=== PATIENT | female | born 1980 | race Caucasian/White ===

== ENCOUNTER 2017-12-02 23:02 | Emergency (ER) | payer SELFPAY ==
[2017-12-03] MEDS ORDERED: ONDANSETRON 4 MG (ODT) TAB ONE (00:46)
[2017-12-03] MEDS ORDERED: MORPHINE 4 MG/ML SYR ONE (00:46)
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
== END 2017-12-03 01:29 | disposition home or self-care (01) ==
LOC: ER 23:02
DX: M79.671 Pain in right foot (principal); T63.011D Toxic effect of rattlesnake venom, accidental (unintentional), subsequent encounter; M79.89 Other specified soft tissue disorders; F17.210 Nicotine dependence, cigarettes, uncomplicated
CPT/HCPCS: 96372; 99283

== ENCOUNTER 2020-01-31 14:14 | Emergency (ER) | payer SELFPAY ==
--- NOTE | 2020-01-31 14:53 | ER ---
Nurse's Notes [facility] Name: Susan Pitts Age: 39 yrs Sex: Female : 1980 Arrival Date: 01/31/2020 Time: 14:16 Bed 4 Private MD: Diagnosis: Torticollis;Low back pain-Chronic Presentation: 01/30 14:31 Chief complaint: Patient states: neck pain x 2 weeks. Pt reports she has ongoing back/ ss neck problems x 12 years. Coronavirus screen: Client denies travel out of the [place] in the last 14 days. Ebola Screen: Patient denies exposure to infectious person. Patient denies travel to an Ebola-affected area in the 21 days before illness onset. Initial Sepsis Screen: Does the patient meet any 2 criteria? No. Patient's initial sepsis screen is negative. Does the patient have a suspected source of infection? No. Patient's initial sepsis screen is negative. Risk Assessment: Do you want to hurt yourself or someone else? Patient reports no desire to harm self or others. Onset of symptoms was January 2020. 14:31 Method Of Arrival: Ambulatory ss 14:31 Acuity: KENROY 4 ss Historical: - Allergies: 14:55 No Known Allergies; em - PSHx: 14:55 Tubal ligation; em - Immunization history:: Adult Immunizations up to date. - Social history:: Smoking status: Patient denies any tobacco usage or history of. - Family history:: not pertinent. - Hospitalizations: : No recent hospitalization is reported. Screenin:50 Abuse screen: Denies threats or abuse. Nutritional screening: No deficits noted. em Tuberculosis screening: No symptoms or risk factors identified. Fall Risk None identified. Assessment: 14:50 General: Appears in no apparent distress. uncomfortable, Behavior is calm, cooperative. em Pain: Complains of pain in left leg and lumbar spine and cervical spine Pain currently is 9 out of 10 on a pain scale. Neuro: Level of Consciousness is awake, alert, obeys commands, Oriented to person, place, time, situation, Appropriate for age. Cardiovascular: Capillary refill < 3 seconds Patient's skin is warm and dry. Respiratory: Airway is patent Respiratory effort is even, unlabored, Respiratory pattern is regular, symmetrical. GI: Abdomen is flat. Derm: Skin is intact, is healthy with good turgor, Skin is pink, warm \T\ dry. Musculoskeletal: Capillary refill < 3 seconds, Range of motion: intact in all extremities. Vital Signs: 14:31 BP 115 / 81; Pulse 95; Resp 16; Temp 97.4(TE); Pulse Ox 100% on R/A; ss ED Course: 14:16 Patient arrived in ED. mr 14:22 Jh Osborn MD is Attending Physician. rn 14:28 David Michaud RN is Primary Nurse. em 14:33 Triage completed. ss 14:50 Patient has correct armband on for positive identification. Call light in reach. Pulse em ox on. NIBP on. 15:13 No provider procedures requiring assistance completed. Patient did not have IV access em during this emergency room visit. Administered Medications: 14:48 Drug: Decadron 10 mg Route: IM; Site: left deltoid; em 15:10 Follow up: Response: No adverse reaction em Outcome: 14:52 Discharge ordered by . rn 15:13 Discharged to home ambulatory. em 15:13 Condition: good 15:13 Discharge instructions given to patient, Instructed on discharge instructions, follow up and referral plans. Demonstrated understanding of instructions, follow-up care, medications, Prescriptions given X 1. 15:13 Patient left the ED. em Signatures: Libertad Johns mr David Michaud, RN JOSHUA Jh Osborn MD MD rn [facility] RN
--- NOTE | 2020-01-31 14:53 | EDPHYS ---
Physician Documentation [facility] Name: Susan Pitts Age: 39 yrs Sex: Female : 1980 Arrival Date: 01/31/2020 Time: 14:16 Bed 4 Private MD: ED Physician Jh Osborn HPI: 01/30 14:37 This 39 yrs old Female presents to ER via Ambulatory with complaints of Back rn Pain, Neck Problem. 14:37 The patient presents with pain that is chronic. The symptoms are located in the low rn back, cervical spine and lumbar spine. Onset: The symptoms/episode began/occurred "years ago". The pain radiates to the left leg. Associated signs and symptoms: Pertinent negatives: abdominal pain, chest pain, fever, hematuria, incontinence, nausea, numbness, tingling, urinary retention, vomiting, weakness. Modifying factors: The patient symptoms are alleviated by nothing, the patient symptoms are aggravated by any movement, lifting, movement. Severity of symptoms: At their worst the symptoms were moderate, in the emergency department the symptoms are unchanged. The patient has experienced similar episodes in the past, chronically. Denies any new injury, reports back and neck pain "for years", no fever/focal neuro complaint. Reports hurts to turn head to left and right, but worse to left. Taking medrol dose pack. Here because wants MRI of spine as she does not have money to pay for one in clinic. . Historical: - Allergies: 14:55 No Known Allergies; em - PSHx: 14:55 Tubal ligation; em - Immunization history:: Adult Immunizations up to date. - Social history:: Smoking status: Patient denies any tobacco usage or history of. - Family history:: not pertinent. - Hospitalizations: : No recent hospitalization is reported. ROS: 14:37 Constitutional: Negative for fever, chills, and weight loss, ENT: Negative for injury, rn pain, and discharge, Neck: Negative for injury, and swelling, Cardiovascular: Negative for chest pain, palpitations, and edema, Respiratory: Negative for shortness of breath, cough, wheezing, and pleuritic chest pain, Abdomen/GI: Negative for abdominal pain, nausea, vomiting, diarrhea, and constipation, Back: + chronic back pain : Negative for injury, bleeding, discharge, and swelling, MS/Extremity: Negative for injury and deformity, Skin: Negative for injury, rash, and discoloration, Neuro: Negative for headache, weakness, numbness, tingling, and seizure. Exam: 14:37 Constitutional: Thin female, ambulatory to room without assistance Head/Face: rn Normocephalic, atraumatic. Neck: Trachea midline, no masses palpated, and no cervical lymphadenopathy. + tenderness over left lateral/posterior neck muscles without mass or crepitus. No warmth. Skin: Warm, dry with normal turgor. Normal color with no rashes, no lesions, and no evidence of cellulitis. MS/ Extremity: Pulses equal, no cyanosis. Neurovascular intact. Full, normal range of motion. Equal circumference. Neuro: Awake and alert, GCS 15, oriented to person, place, time, and situation. Cranial nerves II-XII grossly intact. Motor strength 5/5 in all extremities. Sensory grossly intact. Cerebellar exam normal. Normal gait. Vital Signs: 14:31 BP 115 / 81; Pulse 95; Resp 16; Temp 97.4(TE); Pulse Ox 100% on R/A; ss MDM: 14:22 Patient medically screened. rn 14:37 Differential diagnosis: arthritis, chronic back pain, torticollis, muscle spasm. Data rn reviewed: vital signs, nurses notes, and as a result, I will discharge patient. Counseling: I had a detailed discussion with the patient and/or guardian regarding: the historical points, exam findings, and any diagnostic results supporting the discharge/admit diagnosis, the need for outpatient follow up, to return to the emergency department if symptoms worsen or persist or if there are any questions or concerns that arise at home. Special discussion: I discussed with the patient/guardian in detail that at this point there is no indication for admission to the hospital. It is understood, however, that if the symptoms persist or worsen the patient needs to return immediately for re-evaluation. Further emergent ED testing is not indicated at this point in time. I discussed with the patient/guardian in detail the need to arrange with the PCP or specialist further outpatient testing, MRI. ED course: No acute trauma to indicate emergent need for imaging, most consistent with chronic back pain and torticollis/muscle spasm. Will dc home with muscle relaxer and told needs outpt MRI and spine f/u. Already on medrol dose pack.. Administered Medications: 14:48 Drug: Decadron 10 mg Route: IM; Site: left deltoid; em 15:10 Follow up: Response: No adverse reaction em Disposition: 01/31/20 14:52 Discharged to Home. Impression: Torticollis, Low back pain - Chronic. - Condition is Stable. - Discharge Instructions: Back Pain, Adult, Chronic Back Pain, Acute Torticollis, Adult. - Prescriptions for Cyclobenzaprine 10 mg Oral Tablet - take 1 tablet by ORAL route every 8 hours As needed; 15 tablet. - Medication Reconciliation Form, Thank You Letter, Antibiotic Education, Prescription Opioid Use form. - Follow up: Private Physician; When: As needed; Reason: Recheck today's complaints, Re-evaluation by your physician. - Problem is chronic. - Symptoms have improved. Signatures: David Michaud RN RN em Jh Osborn MD MD research attorney: (The following items were deleted from the chart) 15:13 14:52 01/31/2020 14:52 Discharged to Home. Impression: Torticollis; Low back pain - em Chronic. Condition is Stable. Forms are Medication Reconciliation Form, Thank You Letter, Antibiotic Education, Prescription Opioid Use. Follow up: Private Physician; When: As needed; Reason: Recheck today's complaints, Re-evaluation by your physician. Problem is chronic. Symptoms have improved. rn
[2020-01-31] MEDS ORDERED: dexAMETHasone 10 MG/ML VIAL ONE (14:57)
[2020-01-31 16:26] VITALS: BP 115/81; TEMP 97.4; O2SAT 100
== END 2020-01-31 15:13 | disposition home or self-care (01) ==
LOC: ER 14:14
DX: M43.6 Torticollis (principal)
CPT/HCPCS: 96372; 99283; J1100

== ENCOUNTER 2022-03-31 10:14 | Emergency (ER) | payer OTHER ==
--- NOTE | 2022-03-31 10:57 | ER ---
Nurse's Notes [facility] Name: Susan Pitts Age: 42 yrs Sex: Female : 1980 Arrival Date: 03/31/2022 Time: 10:20 Bed 12 Private MD: Diagnosis: Low back pain;Radiculopathy, lumbar region Presentation: 03/31 10:30 Chief complaint: Patient states: back pain that has been ongoing for 15 years. PT ss reports that she came here because her insurance told her this is the only place to get an MRI. Coronavirus screen: Client denies travel out of the [place] in the last 14 days. Ebola Screen: Patient denies exposure to infectious person. Patient denies travel to an Ebola-affected area in the 21 days before illness onset. Initial Sepsis Screen: Does the patient meet any 2 criteria? No. Patient's initial sepsis screen is negative. Does the patient have a suspected source of infection? No. Patient's initial sepsis screen is negative. Risk Assessment: Do you want to hurt yourself or someone else? Patient reports no desire to harm self or others. Onset of symptoms is unknown. 10:30 Method Of Arrival: Ambulatory ss 10:30 Acuity: KENROY 4 ss Historical: - Allergies: 10:31 No Known Allergies; ss - Home Meds: 10:31 None [Active]; ss - PMHx: 10:31 Chronic back pain; ss - PSHx: 10:31 None; ss - Immunization history:: Client reports receiving the 2nd dose of the Covid vaccine. - Social history:: Smoking status: Patient reports the use of cigarette tobacco products, smokes one pack cigarettes per day. Screenin:06 [facility] ED Fall Risk Assessment (Adult) History of falling in the last 3 months, ss including since admission No falls in past 3 months (0 pts). Abuse screen: Denies threats or abuse. Denies injuries from another. Nutritional screening: No deficits noted. Tuberculosis screening: Never had TB. Assessment: 11:06 General: Appears in no apparent distress. comfortable, Behavior is calm, cooperative. ss Pain: Complains of pain in back Pain currently is 7 out of 10 on a pain scale. Quality of pain is described as aching, tender, Pain began 15 years ago Is continuous. Vital Signs: 10:30 BP 116 / 67; Pulse 94; Resp 16; Temp 97.5(TE); Pulse Ox 100% on R/A; Weight 49.9 kg; ss Height 5 ft. 4 in. (162.56 cm); Pain 7/10; 10:30 Body Mass Index 18.88 (49.90 kg, 162.56 cm) ED Course: 10:20 Patient arrived in ED. rg4 10:21 Mackenzie Acuña FNP-C [facility]. snw 10:21 Selvin Lala MD is Attending Physician. snw 10:31 Triage completed. ss 10:31 Arm band placed on left wrist. ss 10:56 Leonard Nguyễn DO is Referral Physician. snw 10:59 Mary Mackay RN is Primary Nurse. ss 11:05 No provider procedures requiring assistance completed. Patient did not have IV access ss during this emergency room visit. 11:06 Patient has correct armband on for positive identification. ss Administered Medications: 11:03 Drug: Ketorolac 30 mg Route: IM; Site: right gluteus; ss 11:13 Follow up: Response: No adverse reaction ss 11:05 Drug: Valium (diazepam) 5 mg Route: PO; ss 11:13 Follow up: Response: Medication administered at discharge. ss 11:05 Drug: Neurontin (gabapentin) 300 mg Route: PO; ss 11:13 Follow up: Response: Medication administered at discharge. Medication: 11:06 VIS not applicable for this client. Outcome: 10:56 Discharge ordered by MD. snw 11:13 Discharged to home ambulatory, with family. ss 11:13 Condition: good 11:13 Discharge instructions given to patient, family, Instructed on discharge instructions, follow up and referral plans. medication usage, Demonstrated understanding of instructions, follow-up care, medications, Prescriptions given X 4. 11:13 Patient left the ED. Signatures: Mackenzie Acuña FNP-C HEAD STILL OPERATOR-Csnw Mary Mackay RN RN Nury Johns rg4 Corrections: (The following items were deleted from the chart) 10:33 10:30 Chief complaint: Patient states: back pain that has been ongoing for 15 years. ss ss
--- NOTE | 2022-03-31 10:57 | EDPHYS ---
Physician Documentation [facility] Name: Susan Pitts Age: 42 yrs Sex: Female : 1980 Arrival Date: 03/31/2022 Time: 10:20 Bed 12 Private MD: Selvin Ferro HPI: 03/31 11:14 This 42 yrs old Female presents to ER via Ambulatory with complaints of Back Pain. snw 11:14 The patient presents with pain that is chronic, with no known mechanism of injury. The snw symptoms are located in the low back. Onset: The symptoms/episode began/occurred 15 year(s) ago, and became persistent. Location: left buttock. Associated signs and symptoms: Pertinent negatives: constipation, incontinence, urinary retention, weakness. The patient has not recently seen a physician. Historical: - Allergies: 10:31 No Known Allergies; ss - Home Meds: 10:31 None [Active]; ss - PMHx: 10:31 Chronic back pain; ss - PSHx: 10:31 None; ss - Immunization history:: Client reports receiving the 2nd dose of the Covid vaccine. - Social history:: Smoking status: Patient reports the use of cigarette tobacco products, smokes one pack cigarettes per day. ROS: 11:13 Back: Positive for decreased range of motion, pain at rest, pain with movement, snw radiated pain, of the to left buttock. Exam: 11:12 Constitutional: This is a well developed, well nourished patient who is awake, snw anxious, and in no acute distress. Head/Face: Normocephalic, atraumatic. Eyes: Pupils equal round and reactive to light, extra-ocular motions intact. Lids and lashes normal. Conjunctiva and sclera are non-icteric and not injected. Cornea within normal limits. Periorbital areas with no swelling, redness, or edema. ENT: Nares patent. No nasal discharge, no septal abnormalities noted. Tympanic membranes are normal and external auditory canals are clear. Oropharynx with no redness, swelling, or masses, exudates, or evidence of obstruction, uvula midline. Mucous membranes moist. Neck: Trachea midline, no thyromegaly or masses palpated, and no cervical lymphadenopathy. Supple, full range of motion without nuchal rigidity, or vertebral point tenderness. No Meningismus. Chest/axilla: Normal chest wall appearance and motion. Nontender with no deformity. No lesions are appreciated. Cardiovascular: Regular rate and rhythm with a normal S1 and S2. No gallops, murmurs, or rubs. Normal PMI, no JVD. No pulse deficits. Respiratory: Lungs have equal breath sounds bilaterally, clear to auscultation and percussion. No rales, rhonchi or wheezes noted. No increased work of breathing, no retractions or nasal flaring. Abdomen/GI: Soft, non-tender, with normal bowel sounds. No distension or tympany. No guarding or rebound. No evidence of tenderness throughout. Skin: Warm, dry with normal turgor. Normal color with no rashes, no lesions, and no evidence of cellulitis. MS/ Extremity: Pulses equal, no cyanosis. Neurovascular intact. Full, normal range of motion. Neuro: Awake and alert, GCS 15, oriented to person, place, time, and situation. Cranial nerves II-XII grossly intact. Motor strength 5/5 in all extremities. Sensory grossly intact. Cerebellar exam normal. Normal gait. 11:12 Back: pain, that is moderate, of the low back area, CVA tenderness, is absent, vertebral tenderness, is not appreciated, muscle spasm, is not present. 11:12 Neuro: Exam negative for acute changes. 11:12 Psych: Behavior/mood is pleasant, cooperative, anxious. Vital Signs: 10:30 BP 116 / 67; Pulse 94; Resp 16; Temp 97.5(TE); Pulse Ox 100% on R/A; Weight 49.9 kg; ss Height 5 ft. 4 in. (162.56 cm); Pain 7/10; 10:30 Body Mass Index 18.88 (49.90 kg, 162.56 cm) ss MDM: 10:35 Patient medically screened. jenifer 11:09 Differential diagnosis: Fracture Osteoarthritis Osteoporosis ruptured disc, sprain. snw Data reviewed: vital signs, nurses notes. I considered the following discharge prescriptions or medication management in the emergency department Medications were administered in the Emergency Department. See MAR. Historians other than the Patient: Parent: Mom. Care significantly affected by the following Social Determinants of Health: Pt requests MRI, not only is it the weekend, it is non-emergent for unchanged chronic back pain for 15yr. Discussed with Patient and visitor process for obtaining MRI. Pt will get appt with Dr. Nguyễn as soon as possible.. Counseling: I had a detailed discussion with the patient and/or guardian regarding: the historical points, exam findings, and any diagnostic results supporting the discharge/admit diagnosis, the need for outpatient follow up, for definitive care, to return to the emergency department if symptoms worsen or persist or if there are any questions or concerns that arise at home. Special discussion: Based on the history and exam findings, there is no indication for further emergent testing or inpatient evaluation. I discussed with the patient/guardian the need to see the back specialist for further evaluation of the symptoms. I discussed with the patient/guardian the need to see the primary care provider for further evaluation of the symptoms. Administered Medications: 11:03 Drug: Ketorolac 30 mg Route: IM; Site: right gluteus; ss 11:13 Follow up: Response: No adverse reaction ss 11:05 Drug: Valium (diazepam) 5 mg Route: PO; ss 11:13 Follow up: Response: Medication administered at discharge. ss 11:05 Drug: Neurontin (gabapentin) 300 mg Route: PO; ss 11:13 Follow up: Response: Medication administered at discharge. ss Disposition Summary: 03/31/22 10:56 Discharge Ordered Location: Home snw Condition: Stable snw Diagnosis - Low back pain snw - Radiculopathy, lumbar region snw Followup: snw - With: Emergency Department - When: As needed - Reason: Worsening of condition Followup: snw - With: Leonard Nguyễn DO - When: As needed - Reason: Recheck today's complaints, Continuance of care, Re-evaluation by your physician Discharge Instructions: - Discharge Summary Sheet snw - Chronic Back Pain snw - Musculoskeletal Pain snw - Neuropathic Pain snw - Rehydration, Adult snw - Heat Therapy snw - Radicular Pain snw - What You Need to Know About Chronic Back Pain snw Forms: - Medication Reconciliation Form snw - Thank You Letter snw - Antibiotic Education snw - Prescription Opioid Use snw - Work release form eb Prescriptions: - Neurontin 300 mg Oral Capsule - take 1 capsule by ORAL route every 8 hours; 30 capsule; Refills: 0, Product snw Selection Permitted - Prednisone 20 mg Oral Tablet - take 2 tablets by ORAL route once daily for 5 days; 10 tablet; Refills: 0, snw Product Selection Permitted - orphenadrine citrate 100 mg Oral Tablet Sustained Release - take 1 tablet by ORAL route 2 times per day As needed; 20 tablet; Refills: 0, snw Product Selection Permitted - Pepcid 20 mg Oral Tablet - take 1 tablet by ORAL route once daily; 20 tablet; Refills: 0, Product snw Selection Permitted Signatures: Selvin Laal MD MD cha Waters, Shelly, FNP-Alejandro BERNABE-Mary Rodrigues, JOSHUA RN ss
[2022-03-31] MEDS ORDERED: DIAZEPAM 5 MG TABLET ONE (11:04)
[2022-03-31] MEDS ORDERED: KETOROLAC 30 MG/ML INJ ONE (11:04)
[2022-03-31] MEDS ORDERED: GABAPENTIN 300 MG CAP ONE (11:04)
[2022-03-31 11:19] VITALS: BP 116/67; TEMP 97.5; O2SAT 100
== END 2022-03-31 11:13 | disposition home or self-care (01) ==
LOC: ER 10:14
DX: M54.16 Radiculopathy, lumbar region (principal); F17.210 Nicotine dependence, cigarettes, uncomplicated
CPT/HCPCS: 96372; 99283

== ENCOUNTER 2022-04-23 12:44 | Emergency (ER) | payer OTHER ==
--- OUTSIDE RECORDS SUMMARY | 2022-04-23 12:46 | XMS REPORT | Continuity of Care Document ---
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 SDOH Jacob Gannon ld - Alcohol Binge External History of tobacco Cigarette Smoker Jacob Good - use External Alcohol Comment 2022-04-17 2022-04-17 rarely Jacob castellano - 00:00:00 00:00:00 External Education 2022-04-17 2022-04-17 16 Jacob Good - 00:00:00 00:00:00 External Cigarettes smoked 2022-04-17 2022-04-17 Jacob Good - current (pack per 00:00:00 00:00:00 Externa l day) - Reported Cigarette 2022-04-17 2022-04-17 Jacob Good - pack-years 00:00:00 00:00:00 External Tobacco use and 2022-04-17 2022-04-17 Smokeless tobacco Ke sabina Galvanybold - exposure 00:00:00 00:00:00 non-user External Alcohol intake 2022-04-17 2022-04-17 Ex-drinker Jacob segal - 00:00:00 00:00:00 (finding) External Sex Ass[birth year] At [birth year] Jacob castellano - 00:00:00 00:00:00 External Smoking Status Start Date Stop Date Source Smokes tobacco daily 2022-04-17 00:00:00 Jacob Good - External Medications Ordered Filled Start Stop Current Ordering Indication Dosage Frequency Signature Comments Components Source Medication Medication Date Date Medication? 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 a AERS hours as l needed for wheezing Pseudoeph-B Yes [id number] 10mL Take 10 mL Jacob romphen-DM 2-20 by mouth 4 Sey bold 30-2-10 00:00: times - MG/5ML oral 00 daily Externa Syrup l Lidocaine Yes [id number] Use 15 ml Jacob HCl 2-20 to swish, Seybold (Lidocaine 00:00: gargle and - Viscous 00 spit every Dancing Instructor a HCl) 2 % 6 hours as l mouth/throa needed for t Solution throat pain FLUTICASONE 2022- Yes [id number] 50ug Use 1 Jacob PROPIONATE, 2-20 03-23 spray (50 Se ybold NASAL, 00:00: 04:59 mcg total) - (Flonase) 00 :00 in each Externa 50 MCG/ACT nostril l nasal daily Suspension Gabapentin Yes [id number] 300mg QD Take 1 Jacob 300 MG oral 2-15 capsule Seybo ld Capsule 00:00: (300 mg - 00 total) by Externa mouth l nightly as needed (pain) Gabapentin Yes [id number] 300mg QD Take 1 Jacob 300 MG oral 2-15 capsule Seybo ld Capsule 00:00: (300 mg - 00 total) by Externa mouth l nightly as needed (pain) Gabapentin 2022- No 300mg Take 300 K elsey 300 MG oral 03-31 02-15 mg by Seybol d Capsule 00:00: 00:00 mouth - 00 :00 every 8 Externa hours l Orphenadrin 2022- No 100mg Q.5D Take 100 Jacob e Citrate 03-31 02-15 mg by Seybold CR 100 MG 00:00: 00:00 mouth 2 - oral Tablet 00 :00 times Externa 12 Hour daily as l Sustained needed Release predniSONE 2022- No 40mg Take 40 mg Jacob (DELTASONE) 03-31 by mouth Jessi bold 20 MG oral 00:00: 00:00 daily FOR - tablet 00 :00 5 DAYS Externa l Vital Signs Vital Name Observation Time Observation Value Comments Source Systolic blood 2022-04-17 20:03:00 102 mm[Hg] Jacob Galvanybold - pressure External Diastolic blood 2022-04-17 20:03:00 69 mm[Hg] Brittanie Youngold - pressure External Heart rate 2022-04-17 20:03:00 111 /min Jacob dyer - External Body temperature 2022-04-17 20:03:00 36.56 Mikki Eloina pat Seybold - External Respiratory rate 2022-04-17 20:03:00 14 /min Eloina Good - External Body height 2022-04-17 20:03:00 162.6 cm Jacob dyer - External Body weight 2022-04-17 20:03:00 50.168 kg Jacob dyer - External BMI 2022-04-17 20:03:00 18.98 kg/m2 Jacob dyer - External Oxygen saturation in 2022-04-17 20:03:00 100 /min Jacob Good - Arterial blood by External Pulse oximetry Procedures This patient has no known procedures. Encounters Start End Encounter Admission Attending Care Care Encounter Source Date/Time Date/Time Type Type Clinicians Facility Department ID 2022-05-15 2022-05-15 Outpatient JACOB HINKLE [id number] Jacob 13:45:00 13:45:00 NAKIA Seybol d 2022-04-22 2022-04-22 Outpatient JACOB NUNO [id number] Jacob 18:15:00 18:15:00 TYLER Seybol d 2022-04-22 2022-04-22 Outpatient JACOB NUNO [id number] Jacob 00:00:00 00:00:00 TYLER Seybol d 2022-04-17 2022-04-17 Outpatient JACOB HINKLE [id number] Jacob 14:00:00 14:00:00 NAKIA Seybol d 2022-04-17 2022-04-17 Outpatient JACOB JAMES [id number] Jacob 00:00:00 00:00:00 Seybol d 2022-04-04 2022-04-04 Outpatient JACOB HINKLE [id number] Jacob 00:00:00 00:00:00 NAKIA Seybol d Results This patient has no known results.
[2022-04-23] MEDS ORDERED: NA CHLORIDE 0.9% 1,000 ML ONE (13:29)
[2022-04-23] MEDS ORDERED: KETOROLAC 30 MG/ML INJ ONE (13:29)
--- NOTE | 2022-04-23 13:43 | RAD REPORT ---
EXAM DESCRIPTION: [place] Single View04/23/2022 1:36 pm CLINICAL HISTORY: Cough COMPARISON: RIBS UNILATERAL W CXR dated 09/26/2008 TECHNIQUE: Portable AP view of the chest. FINDINGS: The lungs are clear.Mild hyperinflation and biapical scarring suggestive of mild changes o f COPD. No pneumothorax or effusion. The cardiomediastinal contours are unremarkable. IMPRESSION: No acute cardiopulmonary process.
[2022-04-23 14:16] LABS: SARS-COV-2 RT PCR POSITIVE (NEGATIVE)
--- NOTE | 2022-04-23 14:21 | ER ---
Nurse's Notes [facility] Name: Susan Pitts Age: 42 yrs Sex: Female : 1980 Arrival Date: 04/23/2022 Time: 12:48 Bed 10 Private MD: Diagnosis: SARS-associated coronavirus as the cause of diseases classified elsewhere;Dehydration Presentation: 04/23 13:09 Chief complaint: Patient states: she is having cough, sore throat, body aches, and ap3 headaches since Friday04/20/2022. Coronavirus screen: Client presents with at least one sign or symptom that may indicate coronavirus-19. Ebola Screen: No symptoms or risks identified at this time. Initial Sepsis Screen: Does the patient meet any 2 criteria? HR > 90 bpm. Does the patient have a suspected source of infection? No. Patient's initial sepsis screen is negative. Risk Assessment: Do you want to hurt yourself or someone else? Patient reports no desire to harm self or others. Onset of symptoms was April 20, 2022. 13:09 Method Of Arrival: Ambulatory ap3 13:09 Acuity: KENROY 3 ap3 Triage Assessment: 13:12 General: Appears in no apparent distress. Behavior is calm, cooperative, appropriate ap3 for age. Pain: Complains of pain in head Pain currently is 8 out of 10 on a pain scale. Pain began gradually, 2-3 days ago. EENT: Reports nasal congestion. Neuro: Level of Consciousness is awake, alert, obeys commands, Oriented to person, place, time, Speech is normal. Cardiovascular: Patient's skin is warm and dry. Respiratory: Reports cough that is Airway is patent Respiratory effort is even, unlabored. Musculoskeletal: Reports body aches. 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 Flu vaccine is not up to date. - Social history:: Smoking status: Patient reports the use of cigarette tobacco products, smokes one-half pack cigarettes per day, Patient uses alcohol, occasionally. - Family history:: not pertinent. - Hospitalizations: : No recent hospitalization is reported. Screenin:13 [facility] ED Fall Risk Assessment (Adult) History of falling in the last 3 months, ap3 including since admission No falls in past 3 months (0 pts). Abuse screen: Denies threats or abuse. Nutritional screening: No deficits noted. Tuberculosis screening: No symptoms or risk factors identified. Assessment: 14:07 General: Appears in no apparent distress. comfortable, Behavior is calm, cooperative, ld1 appropriate for age. Pain: Denies pain. Pain: Complains of pain in face Pain does not radiate. Pain at worst was 8 out of 10 on a pain scale. Neuro: Level of Consciousness is awake, alert, obeys commands, Oriented to person, place, time, situation. Cardiovascular: Capillary refill < 3 seconds Patient's skin is warm and dry. Respiratory: Airway is patent Respiratory effort is even, unlabored, Breath sounds are clear bilaterally. GI: Abdomen is flat, non-distended. : No signs and/or symptoms were reported regarding the genitourinary system. EENT: No signs and/or symptoms were reported regarding the EENT system. Derm: No signs and/or symptoms reported regarding the dermatologic system. Musculoskeletal: No signs and/or symptoms reported regarding the musculoskeletal system. Vital Signs: 13:09 BP 114 / 78; Pulse 118; Resp 19; Temp 100(T); Pulse Ox 99% ; Weight 49.9 kg; Height 5 ap3 ft. 4 in. (162.56 cm); Pain 9/10; 14:07 BP 118 / 76; Pulse 109; Resp 18; Pulse Ox 100% on R/A; Pain 6/10; ld1 13:09 Body Mass Index 18.88 (49.90 kg, 162.56 cm) ap3 ED Course: 12:48 Patient arrived in ED. mr 12:55 Jh Osborn MD is Attending Physician. rn 13:11 Triage completed. ap3 13:13 Arm band placed on right wrist. ap3 13:14 Strep Sent. ap3 13:14 COVID-19/FLU A+B Sent. ap3 13:23 Ashley Clark, JOSHUA is Primary Nurse. ld1 13:42 Inserted saline lock: 20 gauge in left wrist, using aseptic technique. Blood collected. ld1 14:07 Patient has correct armband on for positive identification. Placed in gown. Bed in low ld1 position. Call light in reach. Side rails up X2. Pulse ox on. NIBP on. Door closed. Noise minimized. 14:07 No provider procedures requiring assistance completed. ld1 14:52 IV discontinued, intact, bleeding controlled, No redness/swelling at site. ld1 Administered Medications: 13:42 Drug: NS 0.9% 1000 ml Route: IV; Rate: 1000 ml; Site: left wrist; ld1 13:42 Drug: Ketorolac 15 mg Route: IVP; Site: left wrist; ld1 Medication: 13:14 VIS not applicable for this client. ap3 Outcome: 14:21 Discharge ordered by . rn 14:51 Discharged to home ambulatory. ld1 14:51 Condition: stable 14:51 Discharge instructions given to patient, Instructed on discharge instructions, follow up and referral plans. medication usage, Demonstrated understanding of instructions, follow-up care, medications, Prescriptions given X 2. 14:52 Patient left the ED. ld1 Signatures: Libertad Johns mr Jh Osborn MD MD rn Prokisch, Amanda, RN RN ap3 Ashley Clark RN RN ld1
--- NOTE | 2022-04-23 14:22 | EDPHYS ---
Physician Documentation [facility] Name: Susan Pitts Age: 42 yrs Sex: Female : 1980 Arrival Date: 04/23/2022 Time: 12:48 Bed 10 Private MD: ED Physician Jh Osborn HPI: 04/23 13:39 This 42 yrs old Female presents to ER via Ambulatory with complaints of Cough, Sore rn Throat, Headache. 13:39 The patient or guardian reports cough, that is intermittent, described as mild, flu rn symptoms, low-grade fever, no appetite. Onset: The symptoms/episode began/occurred 3 day(s) ago. Severity of symptoms: At their worst the symptoms were moderate, in the emergency department the symptoms are unchanged. Modifying factors: The symptoms are alleviated by nothing, the symptoms are aggravated by nothing. Associated signs and symptoms: Pertinent positives: fever, rhinorrhea, sore throat, Pertinent negatives: chest pain, diarrhea. The patient has not experienced similar symptoms in the past. The patient has not recently seen a physician. 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 Flu vaccine is not up to date. - Social history:: Smoking status: Patient reports the use of cigarette tobacco products, smokes one-half pack cigarettes per day, Patient uses alcohol, occasionally. - Family history:: not pertinent. - Hospitalizations: : No recent hospitalization is reported. ROS: 13:39 Constitutional: + subjective fever and chills Eyes: Negative for injury, pain, redness, rn and discharge, ENT: + congestion and sore throat Cardiovascular: Negative for chest pain, palpitations, and edema, Respiratory: + cough Abdomen/GI: Negative for abdominal pain, nausea, vomiting, diarrhea, and constipation, Back: Negative for injury and pain, : Negative for injury, bleeding, discharge, and swelling, Skin: Negative for injury, rash, and discoloration, Neuro: Negative for numbness, tingling, and seizure. Exam: 13:39 Constitutional: This is a well developed, well nourished patient who is awake, alert, rn and in no acute distress. Ambulatory to triage and to chair without difficulty, with a pack of cigarettes Head/Face: Normocephalic, atraumatic. Eyes: Pupils equal round and reactive to light, extra-ocular motions intact. Lids and lashes normal. Conjunctiva and sclera are non-icteric and not injected. Cornea within normal limits. Periorbital areas with no swelling, redness, or edema. ENT: mild pharyngeal erythema, no exudate Neck: Trachea midline, no thyromegaly or masses palpated, and no cervical lymphadenopathy. Supple, full range of motion without nuchal rigidity, or vertebral point tenderness. No Meningismus. Cardiovascular: Tachycardic, regular. No pulse deficits. Respiratory: No increased work of breathing, no retractions or nasal flaring. Abdomen/GI: Soft, non-tender Skin: Warm, dry MS/ Extremity: Pulses equal, no cyanosis. Neuro: Awake and alert, GCS 15, oriented to person, place, time, and situation. Cranial nerves II-XII grossly intact. Motor strength 5/5 in all extremities. Sensory grossly intact. Cerebellar exam normal. Normal gait. Vital Signs: 13:09 BP 114 / 78; Pulse 118; Resp 19; Temp 100(T); Pulse Ox 99% ; Weight 49.9 kg; Height 5 ap3 ft. 4 in. (162.56 cm); Pain 9/10; 14:07 BP 118 / 76; Pulse 109; Resp 18; Pulse Ox 100% on R/A; Pain 6/10; ld1 13:09 Body Mass Index 18.88 (49.90 kg, 162.56 cm) ap3 MDM: 12:55 Patient medically screened. rn 14:20 Differential Diagnosis: Bronchitis Influenza Upper Respiratory Infection Sinusitis rn Viral Syndrome Pneumonia. Data reviewed: vital signs, nurses notes, lab test result(s), radiologic studies, plain films. I considered the following discharge prescriptions or medication management in the emergency department I discussed and recommended Over The Counter medications, Antibiotics: At this time antibiotics are not recommended. Independent interpretation of the following test(s) in the Emergency Department X-Ray: My interpretation is CXR images neg for pneumonia/pneumothorax. Counseling: I had a detailed discussion with the patient and/or guardian regarding: the historical points, exam findings, and any diagnostic results supporting the discharge/admit diagnosis, lab results, radiology results, the need for outpatient follow up, to return to the emergency department if symptoms worsen or persist or if there are any questions or concerns that arise at home. Response to treatment: the patient's symptoms have mildly improved after treatment, and as a result, I will discharge patient. Special discussion: I discussed with the patient/guardian in detail that at this point there is no indication for admission to the hospital. It is understood, however, that if the symptoms persist or worsen the patient needs to return immediately for re-evaluation. 04/23 12:55 Order name: COVID-19/FLU A+B rn 04/23 12:55 Order name: Strep rn 04/23 13:02 Order name: XRAY Chest (1 view) rn 04/23 13:43 Order name: RAD; Complete Time: 13:44 EDMS 04/23 14:15 Order name: Group A Streptococcus Rapid Sc; Complete Time: 14:19 EDMS 04/23 14:17 Order name: COVID-19/FLU A+B; Complete Time: 14:19 EDMS 04/23 13:02 Order name: IV Start; Complete Time: 13:42 rn Administered Medications: 13:42 Drug: NS 0.9% 1000 ml Route: IV; Rate: 1000 ml; Site: left wrist; ld1 13:42 Drug: Ketorolac 15 mg Route: IVP; Site: left wrist; ld1 Disposition Summary: 04/23/22 14:21 Discharge Ordered Location: Home rn Problem: new rn Symptoms: have improved rn Condition: Stable rn Diagnosis - SARS-associated coronavirus as the cause of diseases classified elsewhere rn - Dehydration rn Followup: rn - With: Private Physician - When: As needed - Reason: Recheck today's complaints, Re-evaluation by your physician Discharge Instructions: - Discharge Summary Sheet rn - COVID-19 rn - 10 Things You Can Do to Manage Your COVID-19 Symptoms at Home - [facility] [place] rn - Viral Illness, Adult rn Forms: - Medication Reconciliation Form rn - Thank You Letter rn - Antibiotic hospitality internship - Prescription Opioid Use rn Prescriptions: - albuterol sulfate 90 mcg/actuation Inhalation HFA aerosol inhaler - inhale 2 puff by INHALATION route every 4-6 hours; 1 Pump; Refills: 0, Product rn Selection Permitted - Prednisone 20 mg Oral Tablet - take 3 tablets by ORAL route once daily for 5 days; 15 tablet; Refills: 0, rn Product Selection Permitted Signatures: Dispatcher [employer] Jh Hahn MD MD rn Deb Barreto RN RN ap3 Ashley Clark RN RN ld1
[2022-04-23 16:03] VITALS: BP 114/78; TEMP 100; O2SAT 99
== END 2022-04-23 14:52 | disposition home or self-care (01) ==
LOC: ER 12:44
DX: U07.1 COVID-19 (principal); E86.0 Dehydration; F17.210 Nicotine dependence, cigarettes, uncomplicated
CPT/HCPCS: 87070; 87081; 0240U; 71045; 96374; 99284; J7030